=== PATIENT | female | born 1985 | race African-American/Black ===

== ENCOUNTER 2017-04-07 15:11 | Emergency (ER) | payer OTHER ==
[2017-04-07 15:27] VITALS: BMI 32.5
--- NOTE | 2017-04-07 15:27 | PDOC ---
Rapid Medical Evaluation Time Seen by Provider: 04/07/17 15:22 Medical Evaluation: Allergies Allergy/AdvReac Type Severity Reaction Status Date / Time No Known Allergies Allergy Verified 04/07/17 15:22 04/07/17 15:23 I have performed a brief in person evaluation of this patient. The patient presents with chief complaint of : vomiting since (seen at [facility] yesterday) had nausea medication. pt continues to vomit, 32 weeks , denies abd pain states she has active movement. 3 c-sections. no vaginal discharge or bleeding. MRSA skin infection 5 yrs ago. unable to keep anything down. Pertinent PE findings: non stable vitals I have ordered the following: The patient will proceed to the ER for further evaluation. 04/10/17 12:19 Discharge Disposition - Diagnosis Vomiting Qualifiers: Vomiting type: unspecified Vomiting Intractability: unspecified Nausea presence : with nausea Qualified Code(s): R11.2 - Nausea with vomiting, unspecified Qualifiers: Weeks of gestation: 32 weeks Qualified Code(s): Z3A.32 - 32 weeks gestation of - Discharge Dispostion Disposition: HOME Condition at time of disposition: Stable - Prescriptions Prescriptions: Ondansetron HCl [Zofran] 4 mg PO BID #30 tablet - Referrals Referrals: [facility] [Provider Group] - Patient Instructions Printed Discharge Instructions: DI for Hyperemesis Gravidarum Additional Instructions: please followup with your patient monitor DISCHARGE INSTRUCTIONS: FOLLOWUP WITH CLINIC REST AT HOME DIET TOLERATED INCREASE PO FLUID NO SEXUAL 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
[2017-04-07 15:52] LABS: MCH 31.2 pg (25.7-33.7); MCHC 34.7 g/dl (32.0-36.0); MEAN CELL VOLUME 89.9 fl (80-96); MEAN PLT VOLUME 7.3 fl (7.5-11.1); PLATELET COUNT 237 K/MM3 (134-434); RDW 13.2 % (11.6-15.6); WHITE BLOOD COUNT 11.3 K/mm3 (4.0-10.0)
[2017-04-07 16:15] LABS: ALBUMIN 2.8 g/dl (3.4-5.0); ALK PHOS 100 U/L (45-117); AMYLASE 63 U/L (25-115); ANION GAP 9 (8-16); BILIRUBIN,TOTAL 0.4 mg/dL (0.2-1.0); CALCIUM 9.2 mg/dL (8.5-10.1); CO2 24 mmol/L (21-32); CREATININE 0.5 mg/dL (0.55-1.02); GLUCOSE,RANDOM 73 mg/dL (74-106); SGOT/AST 15 U/L (15-37); SGPT/ALT 24 U/L (12-78); TOT PROT 6.6 g/dl (6.4-8.2)
[2017-04-07] MEDS ORDERED: SODIUM CHLORIDE 1,000 ML IV STA (17:13)
[2017-04-07] MEDS ORDERED: ONDANSETRON 4 MG/2 ML VIAL IVPUSH ONE (17:13)
[2017-04-07] MEDS ORDERED: ONDANSETRON 4 MG/2 ML VIAL ONE (17:26)
--- NOTE | 2017-04-07 17:28 | PDOC ---
History of Present Illness - General History Source: Patient Exam Limitations: No Limitations - History of Present Illness Initial Comments: 04/07/17 18:06 The patient is a 31 year old female (, 32 weeks ) with a significant past medical history of Anemia and MRSA who presents to the emergency department with vomiting for the past 4 days. Patient reports feeling ill since with headache, nasal congestion ,productive cough and vomiting. Patient reports 6 vomiting (nonbilious,nonbloody) episodes today and presents to the ED for further evaluation. Note, patient was seen at [facility] ED yesterday for the same complaints and was discharged home, Patient reports her vomiting and nausea has progressively and presents to the ED for further evaluation. Patient denies chest pain, headache or dizziness. Patient denies fever, chills, abdominal pain, diarrhea or constipation. Patient denies dysuria, frequency, urgency or hematuria. Patient denies sick contacts or recent travel. Allergies: NKA Past surgical history: C Sections Social history: Former smoker <Cici Worthington - Last Filed: 04/07/17 18:06> <Ericka Lovelace - Last Filed: 04/09/17 00:30> - General Chief Complaint: Nausea/Vomiting Stated Complaint: VOMITING (32 WKS ) Time Seen by Provider: 04/07/17 15:22 Past History <Cici Worthington - Last Filed: 04/07/17 18:06> - Suicide/Smoking/Psychosocial Hx Smoking History: Former smoker Have you smoked in the past 12 months: Yes Information on smoking cessation initiated: No <Ericka Lovelace - Last Filed: 04/09/17 00:30> - Past Medical History Allergies/Adverse Reactions: Allergies Allergy/AdvReac Type Severity Reaction Status Date / Time No Known Allergies Allergy Verified 04/07/17 22:30 Home Medications: Ambulatory Orders Ondansetron HCl [Zofran] 4 mg PO BID #30 tablet 04/07/17 Cmb#95/Iron/FA/Dha [ + Dha Combo Pack] 1 each PO DAILY Review of Systems - Review of Systems Able to Perform ROS?: Yes Comments:: 04/07/17 18:06 CONSTITUTIONAL: Absent: fever, chills, diaphoresis, generalized weakness, malaise, loss of appetite HEENT: +rhinorrhea, nasal congestion, Absent: throat pain, throat swelling, difficulty swallowing, mouth swelling, ear pain, eye pain, visual Changes CARDIOVASCULAR: Absent: chest pain, syncope, palpitations, irregular heart rate, lightheadedness , peripheral edema RESPIRATORY: Absent: cough, shortness of breath, dyspnea with exertion, orthopnea, wheezing, stridor, hemoptysis GASTROINTESTINAL: +nausea. +vomiting. Absent: abdominal pain, abdominal distension,diarrhea, constipation, melena, hematochezia GENITOURINARY: Absent: dysuria, frequency, urgency, hesitancy, hematuria, flank pain, genital pain MUSCULOSKELETAL: Absent: myalgia, arthralgia, joint swelling SKIN: Absent: rash, itching, pallor HEMATOLOGIC/IMMUNOLOGIC: Absent: easy bleeding, easy bruising, lymphadenopathy, frequent infections ENDOCRINE: Absent: unexplained weight gain, unexplained weight loss, heat intolerance, cold intolerance NEUROLOGIC: Absent: headache, focal weakness or paresthesias, dizziness, unsteady gait, seizure, mental status changes, bladder or bowel incontinence PSYCHIATRIC: Absent: anxiety, depression, suicidal or homicidal ideation, hallucinations. <Cici Worthington - Last Filed: 04/07/17 18:06> *Physical Exam - Vital Signs Last Vital Signs Temp Pulse Resp BP Pulse Ox 98.5 F 98 H 19 112/75 98 04/07/17 15:22 04/07/17 15:22 04/07/17 15:22 04/07/17 15:22 04/07/17 15:22 - Physical Exam Comments: 04/07/17 18:06 GENERAL: Well developed, well nourished. Awake and alert. No acute distress. HEENT: Normocephalic, atraumatic. PERRLA, EOMI. No conjunctival pallor. Sclera are non- icteric. Moist mucous membranes. Oropharynx is clear. NECK: Supple. Full ROM. No JVD. Carotid pulses 2+ and symmetric, without bruits. No thyromegaly. No lymphadenopathy. CARDIOVASCULAR: Regular rate and rhythm. No murmurs, rubs, or gallops. Distal pulses are 2+ and symmetric. PULMONARY: No evidence of respiratory distress. Lungs clear to auscultation bilaterally. No wheezing, rales or rhonchi. ABDOMINAL: +Gravid abdomen. Soft. Non-tender. Non-distended. No rebound or guarding. No organomegaly. Normoactive bowel sounds. MUSCULOSKELETAL Normal range of motion at all joints. No bony deformities or tenderness. No CVA tenderness. EXTREMITIES: No cyanosis. No clubbing. No edema. No calf tenderness. SKIN: Warm and dry. Normal capillary refill. No rashes. No jaundice. NEUROLOGICAL: Alert, awake, appropriate. Cranial nerves 2-12 intact. No deficits to light touch and temperature in face, upper extremities and lower extremities. No motor deficits in the in face, upper extremities and lower extremities. Normoreflexic in the upper and lower extremities. Normal speech. Toes are down-going bilaterally. Gait is normal without ataxia. PSYCHIATRIC: Cooperative. Good eye contact. Appropriate mood and affect. <Cici Worthington - Last Filed: 04/07/17 18:06> - Vital Signs Last Vital Signs Temp Pulse Resp BP Pulse Ox 98.5 F 98 H 19 112/75 98 04/07/17 15:22 04/07/17 15:22 04/07/17 15:22 04/07/17 15:22 04/07/17 15:22 <Ericka Lovelace - Last Filed: 04/09/17 00:30> ED Treatment Course - LABORATORY CBC & Chemistry Diagram: 04/07/17 14:30 04/07/17 14:30 - ADDITIONAL ORDERS Additional order review: Laboratory Results 04/07/17 14:30 Sodium 140 Potassium 4.1 Chloride 107 Carbon Dioxide 24 Anion Gap 9 BUN 6 L Creatinine 0.5 L Creat Clearance w eGFR > 60 Random Glucose 73 L Calcium 9.2 Total Bilirubin 0.4 AST 15 ALT 24 Alkaline Phosphatase 100 Total Protein 6.6 Albumin 2.8 L Total Amylase 63 Lipase 149 04/07/17 14:30 RBC 3.70 MCV 89.9 MCHC 34.7 RDW 13.2 MPV 7.3 L Neutrophils % No Result Required. Lymphocytes % No Result Required. - Medications Given in the ED: ED Medications Discontinued Medications Generic Name Dose Route Start Last Admin Trade Name Freq PRN Reason Stop Dose Admin Ondansetron HCl 4 mg 04/07/17 17:13 04/07/17 17:28 Zofran Injection IVPUSH 04/07/17 17:14 4 mg ONCE ONE Administration <Cici Worthington - Last Filed: 04/07/17 18:06> - LABORATORY CBC & Chemistry Diagram: 04/07/17 14:30 04/07/17 14:30 - ADDITIONAL ORDERS Additional order review: Laboratory Results 04/07/17 14:30 Sodium 140 Potassium 4.1 Chloride 107 Carbon Dioxide 24 Anion Gap 9 BUN 6 L Creatinine 0.5 L Creat Clearance w eGFR > 60 Random Glucose 73 L Calcium 9.2 Total Bilirubin 0.4 AST 15 ALT 24 Alkaline Phosphatase 100 Total Protein 6.6 Albumin 2.8 L Total Amylase 63 Lipase 149 04/07/17 14:30 RBC 3.70 MCV 89.9 MCHC 34.7 RDW 13.2 MPV 7.3 L Neutrophils % No Result Required. Lymphocytes % No Result Required. - Medications Given in the ED: ED Medications Discontinued Medications Generic Name Dose Route Start Last Admin Trade Name Freq PRN Reason Stop Dose Admin Ondansetron HCl 4 mg 04/07/17 17:13 04/07/17 17:28 Zofran Injection IVPUSH 04/07/17 17:14 4 mg ONCE ONE Administration <Ericka Lovelace - Last Filed: 04/09/17 00:30> Medical Decision Making - Medical Decision Making 04/09/17 00:28 pt is 31 yo female who is with vomiting -no pelvic cramping or bleeding --no abd pain pt received IVF,anti emetics and felt much better -no evidence of HELLP syndrome, liver function testes wnl <Ericka Lovelace - Last Filed: 04/09/17 00:30> *DC/Admit/Observation/Transfer - Attestations Scribe Attestion: 04/07/17 18:06 Documentation prepared by Cici Worthington, acting as medical affairs director for Ericka Lovelace MD <Cici Worthington - Last Filed: 04/07/17 18:06> <Ericka Lovelace - Last Filed: 04/09/17 00:30> Diagnosis at time of Disposition: Vomiting Qualifiers: Vomiting type: unspecified Vomiting Intractability: unspecified Nausea presence : with nausea Qualified Code(s): R11.2 - Nausea with vomiting, unspecified Qualifiers: Weeks of gestation: 32 weeks Qualified Code(s): Z3A.32 - 32 weeks gestation of - Discharge Dispostion Disposition: HOME Condition at time of disposition: Stable - Prescriptions Prescriptions: Ondansetron HCl [Zofran] 4 mg PO BID #30 tablet - Referrals Referrals: [facility] [Provider Group] - Patient Instructions Printed Discharge Instructions: DI for Hyperemesis Gravidarum Additional Instructions: please followup with your vertical punch operator DISCHARGE INSTRUCTIONS: FOLLOWUP WITH CLINIC REST AT HOME DIET TOLERATED INCREASE PO FLUID NO SEXUAL INTERCOURSE MANUAL LATHE OPERATOR PRESCRIPTION AT [facility] RETURN TO HOSPITAL IF: REGULAR CONTRACTIONS DECREASED MOVEMENT RUPTURE OF MEMBRANES VAGINAL BLEEDING
[2017-04-07 18:12] LABS: URINE APPEARANCE SLCLOUDY; URINE BILIRUBIN NEGATIVE (NEGATIVE); URINE BLOOD NEGATIVE (NEGATIVE); URINE COLOR YELLOW; URINE GLUCOSE (UA) NEGATIVE (NEGATIVE); URINE KETONE TRACE (NEGATIVE); URINE NITRITE NEGATIVE (NEGATIVE); URINE PROTEIN NEGATIVE (NEGATIVE); URINE UROBILINOGEN NEGATIVE mg/dL (0.2-1.0)
[2017-04-07] MEDS ORDERED: DEXTROSE 5%-LACTATED RINGERS 1,000 ML IV ONE (21:00)
[2017-04-07] MEDS ORDERED: TERBUTALINE SULFATE 1 MG/1 ML VIAL SQ ONE (21:05)
[2017-04-07 21:18] VITALS: BP 108/63; PULSE 88; TEMP 98
[2017-04-07 21:42] LABS: PLATELET ESTIMATE ADEQUATE
[2017-04-07 23:05] LABS: URINE LEUK ESTERASE Negative (NEGATIVE)
== END 2017-04-07 23:35 | disposition home or self-care (01) ==
LOC: JER 15:11
PROC: 3E023GC Introduction of Other Therapeutic Substance into Muscle, Percutaneous Approach (ICD-10-PCS; principal; 2017-04-07)
PROC: 3E033GC Introduction of Other Therapeutic Substance into Peripheral Vein, Percutaneous Approach (ICD-10-PCS; 2017-04-07)
PROC: 3E0337Z Introduction of Electrolytic and Water Balance Substance into Peripheral Vein, Percutaneous Approach (ICD-10-PCS; 2017-04-07)
DX: O26.893 Other specified pregnancy related conditions, third trimester (principal); Z3A.32 32 weeks gestation of pregnancy; R11.2 Nausea with vomiting, unspecified
CPT/HCPCS: 36415; 80053; 81003; 82150; 83690; 85025; 96361; 96365; 96372; 96375; 99283-25

== ENCOUNTER 2017-05-23 05:45 | Inpatient (IN) | payer OTHER ==
[~2017-05-23 05:45] MED LIST: CITRIC ACID/SODIUM CITRATE 30 ML UNIT-DOSE CUP PO ONE; ELECTROLYTE-148 SOLN 500 ML IV ONE
[2017-05-23] MEDS ORDERED: ELECTROLYTE-148 SOLN 500 ML IV ONE (06:15)
[2017-05-23 06:20] VITALS: BMI 33.9
[2017-05-23] MEDS ORDERED: OXYTOCIN 20 UNITS in 0.9% NS 20 UNIT/1,000 ML INFUS.BAG IV ONE ×3 (07:55→13:34)
[2017-05-23] MEDS ORDERED: morphine SULFATE/Preservative Free 0.5 MG/ML (1cc Syringe) ONE (07:59)
[2017-05-23] MEDS ORDERED: PHENYLEPHRINE HCL 10 MG/1 ML SINGLE DOSE VIAL ONE (07:59)
[2017-05-23] MEDS ORDERED: ELECTROLYTE-148 SOLN 1,000 ML IV SCH (08:00)
--- NOTE | 2017-05-23 08:03 | HP ---
Past Medical History - Primary Care Physician PCP:: Ariela Hernandez - Admission Chief Complaint: 31 yrs [id number] , 39.2/7 weeks IUP, previous c/sx3, reuests for Repeat c/s & voluntory sterlization History of Present Illness: PNC transfereed from [address] at 17 weeks gestation . panel : O pos, Rpr nr, Hbsag neg, Hiv neg Rubella pos, Rpr nr, Quantiferon neg, Gc/Ct neg, Gbs neg, 1 hR Gtt 98 . Growth sono done by M reviewed . 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 female. G2 2006 Ind Ab. G3 04/06/2010 40 weeks 5'9" repeat c/s DS male. G4 03/09/2011 40 weeks 5'4" repeat c/s DS female Heme/Onc: Yes: Anemia Infectious Disease: No: AIDS, HIV, MRSA, STD's Psych: Yes: Other (h/o MERSA in 2010). No: Addictions, Anxiety, Bipolar, Depression - Past Surgical History Past Surgical History: Yes: (, 04/13, 03/15) Hx Myomectomy: No Hx Transabdominal Cerclage: No Additional Surgical History: ? chest wall or breast sugery in 2010( h/o MERSA ) - Smoking History Smoking history: Never smoked Have you smoked in the past 12 months: No - Alcohol/Substance Use Hx Alcohol Use: No History of Substance Use: reports: None - Social History History of Recent Travel: No Home Medications - Allergies Allergies/Adverse Reactions: Allergies Allergy/AdvReac Type Severity Reaction Status Date / Time No Known Allergies Allergy Verified 05/20/17 11:58 - Home Medications Home Medications: Ambulatory Orders NK [No Known Home Medication] 05/06/17 Physical Exam - Maternity Vital Signs: Vital Signs Temperature 98.7 F 05/23/17 05:45 Pulse Rate 97 H 05/23/17 05:45 Respiratory Rate 20 05/23/17 05:45 Blood Pressure 120/74 05/23/17 05:45 O2 Sat by Pulse Oximetry (%) Constitutional: Yes: Well Nourished Eyes: Yes: WNL HENT: Yes: WNL, Normocephalic Neck: Yes: WNL, Supple, Trachea Midline Cardiovascular: Yes: WNL, Regular Rate and Rhythm Lungs: Clear to auscultation Breast(s): Yes: WNL. No: Mass - Abdominal Exam/OB Fundal Height: 38 Number of Fetuses: Single Presentation: Vertex Contractions: Yes Regularity: Irregular Intensity: Unaware Monitor Mode: External Heart Rate (range): 130-140 Heart Rate Location: Midline Category: I Accelerations: Uniform Decelerations: None - Vaginal Exam/OB Vaginal Bleediing: No Dilatation (cm): close Effacement (%): unefface Presentation: Vertex/Position Station: -3 - Physical Exam Musculoskeletal: Yes: WNL Extremities: Yes: WNL. No: Calf Tenderness Edema: Yes Edema: LLE: Trace, RLE: Trace Integumentary: Yes: Incision (pfannensteil scar) Deep Tendon Reflex Grade: Normal +2 ...Motor Strength: WNL Psychiatric: Yes: WNL, Alert, Oriented - Labs Lab Results: Laboratory Tests 05/20/17 05/20/17 05/20/17 08:40 08:40 08:40 WBC 11.0 H Hgb 11.2 Hct 34.5 Plt Count 270 Neutrophils % (Manual) 67.0 Lymphocytes % (Manual) 18.6 PT with INR INR PTT (Actin FS) Sodium 140 Potassium 4.0 Chloride 107 Carbon Dioxide 23 BUN 6 L Creatinine 0.6 Random Glucose 73 L Total Bilirubin 1.0 D AST 15 ALT 23 Urine Protein 1+ H Urine Glucose (UA) 1+ H Urine Nitrite Negative Ur Leukocyte Esterase 1+ H Urine WBC (Auto) 6 Urine RBC (Auto) 1 RPR Titer 05/20/17 05/20/17 10:10 10:10 WBC Hgb Hct Plt Count Neutrophils % (Manual) Lymphocytes % (Manual) PT with INR 11.10 INR 0.98 PTT (Actin FS) 23.2 L Sodium Potassium Chloride Carbon Dioxide BUN Creatinine Random Glucose Total Bilirubin AST ALT Urine Protein Urine Glucose (UA) Urine Nitrite Ur Leukocyte Esterase Urine WBC (Auto) Urine RBC (Auto) RPR Titer Nonreactive Microbiology 05/20/17 10:10 Nares - Right Nares MRSA Screen - Final NO MRSA ISOLATED 05/20/17 10:10 Nares - Left Nares MRSA Screen - Final NO MRSA ISOLATED Hemorrhage Risk Assessment - Risk Factors Medium Risk Factors: Yes: Prior , uterine surgery,or multiple laparotomies Risk Score: 1 Risk Level: Medium Risk Problem List - Problems (1) with 39 completed weeks gestation Code(s): Z3A.39 - 39 WEEKS GESTATION OF (2) Previous section Code(s): Z98.891 - HISTORY OF UTERINE SCAR FROM PREVIOUS SURGERY (3) Multiparity Code(s): Z64.1 - PROBLEMS RELATED TO MULTIPARITY Assessment/Plan 31 yrs , 39.2/7 weeks previous c/s x3 , requests for repeat c/section & BTL . gbs neg
[2017-05-23] MEDS ORDERED: OXYTOCIN 10 UNITS/ML VIAL ONE (08:32)
[2017-05-23] MEDS ORDERED: ONDANSETRON 4 MG/2 ML VIAL IVPUSH PRN (09:05)
[2017-05-23 09:10] LABS: ARTERIAL BLD GAS O2 SATURATION 13.2 % (90-98.9); ARTERIAL BLOOD GAS BASE EXCESS -3.8 meq/l (-2-2); ARTERIAL BLOOD GAS pH 7.27 (7.35-7.45)
[2017-05-23 09:14] LABS: VENOUS PC02 45.2 mmHg (38-52)
[2017-05-23 09:15] LABS: VENOUS PH 7.32 (7.32-7.42); VENOUS PO2 21.3 mmHg (28-48)
[2017-05-23] MEDS ORDERED: KETOROLAC TROMETHAMINE 30 MG/1 ML VIAL ONE (09:46)
[2017-05-23] MEDS ORDERED: IBUPROFEN 800 MG/8 ML IJ IVPB PRN (09:58)
[2017-05-23] MEDS ORDERED: METHYLERGONOVINE MALEATE 0.2 MG/1 ML AMP IM PRN (09:58)
--- NOTE | 2017-05-23 10:10 | PN ---
Delivery - Delivery Section: Repeat, Low Flap Transverse (lysis of adhesions, BTL) Type of Anesthesia: Spinal Episiotomy/Laceration: None EBL (cc): 600 (500 mlamber color bales out put ) Delivery, Single - Stages of Labor Date of Delivery: 05/23/17 Time of Delivery: 08:40 Time Placenta Delivered: 08:41 Placenta: Yes: Manual Removal, Uterine Exploration - Condition of Cost And Sales Record Supervisor/Aircraft Electrician Present: Yes Name: Geraldo Velez Gender: Male Weight: 7 lb 2 oz Position: Right, OP Total Hours ROM (Hrs/Mins): 2mins - 1 Minute Total Score: 9 5 Minutes Total Score: 9 - Tofte Feeding Plan Initial Plan: Elected not to breastfeed exclusively throughout hospitalization Remarks - Remarks Remarks: 31 yrs ,PNC at 2, [facility] , .GBS neg Indication : Previous c/s x3, 39.2/7 weeks, Multiparity requests for repeat c/ s & voluntory sterlization . During surgery intense thick adhesions encountered
--- NOTE | 2017-05-23 10:16 | OP ---
Operative Note - Note: Operative Date: 05/23/17 Pre-Operative Diagnosis: 39.2 weeks, previous c/sx3, Multiparity , voluntory sterlizatio Operation: Repeat LFTC/Section & BTL , Lysis of adhesions Findings: Ant abdominal wall adherent to uterus rectus muscle transected laterally both sides to obtain adequate exposure . 8.40 Am ,baby Boy, vx, ROP, 9/9, Wt 7'2", Left Tube , midampuulary portion ligated , cut & endosalpinx cauterized Right Tube lateral salpingectomy was done ovariy left side normal , Right ovary could not be visualised or palpated due to adhesions Dr coyne , mortgage loan underwriter present in the room Post-Operative Diagnosis: Other (abdominal uterine & omental adhesions) Surgeon: Ariela Hernandez Furnace Room Supervisor: John Rivero Anesthesiologist/HAIRSPRING II INSPECTOR: Ashley Babb Anesthesia: Spinal Specimens Removed: placenta. cord segment for blood gas. cord blood Estimated Blood Loss (mls): 600 Drains, Volume Out (mls): 500 (bales output vesta color ) Fluid Volume Replaced (mls): 2,200 (iv ancef 2 gm ivpb given )
--- NOTE | 2017-05-23 11:18 | OP ---
DATE OF OPERATION: 05/23/2017 PREOPERATIVE DIAGNOSES: At 39.2 weeks, previous section x3, multiparity, voluntary sterilization. POSTOPERATIVE DIAGNOSES: At 39.2 weeks, previous section x3, multiparity, voluntary sterilization, intense abdominal wall uterine omental adhesions. OPERATION: Repeat low transverse section, lysis of adhesions, and bilateral tubal ligation. SURGEON: Pablo Hernandez MD CANDY CUTTER HAND SURGEON: SONIDO Cotto ANESTHESIA: Spinal by Ashley Wells FINDINGS: This is a 31-year-old 5, para 3-0-1-3 at 39.2 weeks' gestation, previous section x3 not in labor and requests for voluntary sterilization and repeat section. DESCRIPTION OF PROCEDURE: The patient's abdomen was shaved. Colón catheter was placed. She was taken to the operating room table, and spinal anesthesia was given. She was placed in supine position. The abdomen was painted and draped in the usual manner. Pfannenstiel incision was made through a previous scar, the skin, subcutaneous tissue, and scar tissue. Anterior rectus sheath was incised transversely, and the bleeding points were clamped and cauterized. Rectus muscle was , and the peritoneal peritoneum could not be identified as old thick scar tissue was noted. A small window was obtained in the middle of the incision then the rectus muscle in the lower portion was , and in the upper portion the incision could not be extended so first the left side then the right side rectus muscle was transected laterally to obtain enough exposure. The scar tissue was adherent to the uterine wall in the center of the uterus, and lysis of the scar tissue was done. Once enough exposure was obtained then the bladder was high on the uterus. Large blood vessels were noted just above that. There was no definite bladder peritoneum also noted on the lowest shave point. Incision was made in the left uterine segment, and it was extended laterally, and the bladder was delivered at 8:40 a.m. from ROP position. Amniotic fluid was clear. Baby boy. Apgars were 9/9, and the weight was 7.2 ounces. Cord was clamped and cut and cord blood was collected. Social Security Specialist, Dr. Velez, was present in the operating room. A segment of cord also was sent for the cord blood gases and then placenta was removed completely with the membranes. There were adhesions of the uterus to the abdominal wall in the fundal area and laterally also. Adhesions were lysed Uterine cavity was clean. The uterine incision was closed in 2 layers with biosyn O . first layer continuous locking sutures were taken. 2 nd layer continuous vertical mattress sutures were taken ,. Because of the lysis of adhesions from the abdominal wall, there was bleeding still noticed so hemostatic sutures were required to achieve it completely, The omental adhesions were clamped, cut, and ligated. Left side adnexa was accessible. The tube was identified at the fimbrial end, and the middle portion of the tube was doubly ligated with 2-0 plain catgut, and a portion of the tube was cut and sent for pathology examination. Endosalpinx was cauterized. The left ovary was normal. Hemostasis was verified. The right side also abdominal wall was adherent to the uterus and some window was obtained. Some lysis of adhesions was done by clamped, cut, and ligatingt hem. The tube was also very adherent, and the adhesions were lysed and the tube was identified to the fimbrial end, but a medial portion of the tube could not be seen or traced to full length. , so the lateral salpingectomy was done by applying the 2 Patria clamps. A portion of the lateral tube was cut. Medial stump of the tube was ligated with 2-0 Vicryl suture. Hemostasis was verified and then again hemostasis was checked on ant uterine surface. As some oozing still noted Surgicel was placed in front of the uterus. Since we did not have a definite parietal peritoneum, wherever the peritoneum was identified it was closed together. Then the muscles, which were transected laterally were approximated with Biosyn single suture, and the lower portion of the muscle was approximated with a Biosyn single suture. Hemostasis was checked underneath the rectus sheath flap. The skin was mobilized from this scar in both upper and lower portion. Then anterior rectus sheath was closed with a Vicryl 0 suture. Subcutaneous tissue was approximated with a Vicryl 0 suture and then skin was approximated with maryellen. Abdominal l dressing was given then vaginal examination was done, and the cervix was opened. No lochia was noted. No bleeding was noted at that time from the vagina. Estimated blood loss was 600 mL, and the urine output was 500 mL intraoperatively. It was vesta color. IV Ancef 2 g prior to the incision was given. She received 2200 mL of IV fluids. PABLO KHUSHALANI, M.D. [id number] MTDD
[2017-05-23] MEDS: CEFAZOLIN 1 GM/D5W 1 GM/50 ML BAG IVPB SCH ×2 (18:26→20:03)
[2017-05-24] MEDS: CEFAZOLIN 1 GM PUSH 1 GM/10 ML DISP.SYRIN IVPUSH SCH ×2 (02:18→11:06)
[2017-05-24] MEDS: IBUPROFEN 600 MG TABLET (FP) PO PRN ×2 (05:06→16:11)
[2017-05-24] MEDS: SIMETHICONE 80 MG TAB.CHEW (FP) PO PRN ×2 (05:06→16:12)
[2017-05-24] MEDS: ACETAMINOPHEN 325 MG TABLET (FP) PO PRN ×2 (05:07→16:12)
[2017-05-24] MEDS ORDERED: oxyCODONE HCL 5 MG TABLET PO PRN ×2 (08:00)
[2017-05-24 08:15] LABS: BASO % 0.2 % (0-2.0); EOS % 0.8 % (0-4.5); HEMOGLOBIN 10.8 GM/dL (10.7-15.3); LYMPH % 11.7 % (8-40); MCH 28.7 pg (25.7-33.7); MCHC 32.5 g/dl (32.0-36.0); MEAN CELL VOLUME 88.2 fl (80-96); MONO % 8.6 % (3.8-10.2); NEUT % 78.7 % (42.8-82.8); PLATELET COUNT 256 K/MM3 (134-434); RBC 3.75 M/mm3 (3.60-5.2); WHITE BLOOD COUNT 13.6 K/mm3 (4.0-10.0)
[2017-05-24] MEDS: OXYTOCIN 20 UNITS in 0.9% NS 20 UNIT/1,000 ML INFUS.BAG IV SCH (08:26)
--- NOTE | 2017-05-24 08:34 | PN ---
Progress Note (short form) - Note Progress Note: Post op day#1.S/P C Section under spinal anesthesia with duramorph uneventful.Patient stable and has little pain for which she is on medication.No any anesthesia related problem.Patient DC from the anesthesia care.
[2017-05-24] MEDS ORDERED: BISACODYL 10 MG SUPP.RECT RC PRN (09:58)
[2017-05-24] MEDS: PRENATAL VITAMINS W/ FOLIC ACID TABLET (FP) PO SCH (10:00)
[2017-05-24] MEDS ORDERED: DIPHTH,PERTUSS(ACELL),TET 0.5 ML DISP.SYRIN IM ONE (10:00)
[2017-05-24] MEDS ORDERED: FLU VACC QS2017-18 36MOS UP/PF 60 MCG/0.5 ML SYRINGE IM ONE (10:00)
[2017-05-24] MEDS: ENOXAPARIN NA (PORCINE) 40 MG/0.4 ML DISP.SYRIN SQ SCH (10:32)
--- NOTE | 2017-05-24 12:44 | PN ---
Post Progress Note - Subjective Subjective: 31 yo Para 4 status post repeat , seen and evaluated. Doing well. Post Day: 1 Type of Delivery: Repeat C/S Vital Signs: Vital Signs Temperature 98.3 F 05/24/17 06:00 Pulse Rate 92 H 05/24/17 06:00 Respiratory Rate 18 05/24/17 06:00 Blood Pressure 116/64 05/24/17 06:00 O2 Sat by Pulse Oximetry (%) 100 05/23/17 13:45 Breast Exam: Yes: Soft Uterus: Yes: Fundus Firm Incision: Yes: Dressing dry and intact Abdomen/GI: Yes: Abdomen soft, Tolerating PO Lochia: Yes: Rubra Lochia, amount: Small Extremities: Yes: Calves non-tender Activity: Ambulating - Labs Labs: CBC WBC 13.6 K/mm3 (4.0-10.0) H 05/24/17 07:52 RBC 3.75 M/mm3 (3.60-5.2) 05/24/17 07:52 Hgb 10.8 GM/dL (10.7-15.3) 05/24/17 07:52 Hct 33.0 % (32.4-45.2) 05/24/17 07:52 MCV 88.2 fl (80-96) 05/24/17 07:52 MCH 28.7 pg (25.7-33.7) 05/24/17 07:52 MCHC 32.5 g/dl (32.0-36.0) 05/24/17 07:52 RDW 14.0 % (11.6-15.6) 05/24/17 07:52 Plt Count 256 K/MM3 (134-434) 05/24/17 07:52 MPV 7.0 fl (7.5-11.1) L 05/24/17 07:52 Neutrophils % 78.7 % (42.8-82.8) 05/24/17 07:52 Lymphocytes % 11.7 % (8-40) 05/24/17 07:52 Monocytes % 8.6 % (3.8-10.2) 05/24/17 07:52 Eosinophils % 0.8 % (0-4.5) 05/24/17 07:52 Basophils % 0.2 % (0-2.0) 05/24/17 07:52 Problem List - Problems (1) Status post repeat low transverse section Code(s): Z98.891 - HISTORY OF UTERINE SCAR FROM PREVIOUS SURGERY Assessment/Plan Status post repeat Ambulation Analgesia as needed Continue post op care
[2017-05-24] MEDS: FERROUS SO4 325 MG TABLET (FP) PO SCH (21:28)
[2017-05-24] MEDS: SENNOSIDES/DOCUSATE COMBO (SENNA PLUS) TABLET (UD) PO PRN (21:29)
[2017-05-25] MEDS: SIMETHICONE 80 MG TAB.CHEW (FP) PO PRN ×2 (00:56→19:51)
[2017-05-25] MEDS: IBUPROFEN 600 MG TABLET (FP) PO PRN ×2 (00:56→19:51)
[2017-05-25] MEDS: ACETAMINOPHEN 325 MG TABLET (FP) PO PRN ×2 (00:58→19:52)
--- NOTE | 2017-05-25 05:54 | PN ---
Post Progress Note - Subjective Subjective: 31 yo Para 4 status post repeat , seen and evaluated. Doing well, no complaints. Post Day: 2 Type of Delivery: Repeat C/S Vital Signs: Vital Signs Temperature 98 F 05/24/17 22:00 Pulse Rate 89 05/24/17 22:00 Respiratory Rate 18 05/24/17 22:00 Blood Pressure 107/66 05/24/17 22:00 O2 Sat by Pulse Oximetry (%) 100 05/23/17 13:45 Breast Exam: Yes: Soft Uterus: Yes: Fundus Firm Incision: Yes: Dressing dry and intact Abdomen/GI: Yes: Abdomen soft, Tolerating PO Lochia: Yes: Rubra Lochia, amount: Small Extremities: Yes: Calves non-tender Perineum: Yes: Intact Activity: Ambulating - Labs Labs: CBC WBC 13.6 K/mm3 (4.0-10.0) H 05/24/17 07:52 RBC 3.75 M/mm3 (3.60-5.2) 05/24/17 07:52 Hgb 10.8 GM/dL (10.7-15.3) 05/24/17 07:52 Hct 33.0 % (32.4-45.2) 05/24/17 07:52 MCV 88.2 fl (80-96) 05/24/17 07:52 MCH 28.7 pg (25.7-33.7) 05/24/17 07:52 MCHC 32.5 g/dl (32.0-36.0) 05/24/17 07:52 RDW 14.0 % (11.6-15.6) 05/24/17 07:52 Plt Count 256 K/MM3 (134-434) 05/24/17 07:52 MPV 7.0 fl (7.5-11.1) L 05/24/17 07:52 Neutrophils % 78.7 % (42.8-82.8) 05/24/17 07:52 Lymphocytes % 11.7 % (8-40) 05/24/17 07:52 Monocytes % 8.6 % (3.8-10.2) 05/24/17 07:52 Eosinophils % 0.8 % (0-4.5) 05/24/17 07:52 Basophils % 0.2 % (0-2.0) 05/24/17 07:52 Problem List - Problems (1) Status post repeat low transverse section Code(s): Z98.891 - HISTORY OF UTERINE SCAR FROM PREVIOUS SURGERY Assessment/Plan Status post repeat Ambulation Analgesia as needed Continue post op care
[2017-05-25] MEDS: ENOXAPARIN NA (PORCINE) 40 MG/0.4 ML DISP.SYRIN SQ SCH (10:11)
[2017-05-25] MEDS: FERROUS SO4 325 MG TABLET (FP) PO SCH ×2 (10:11→21:17)
[2017-05-25] MEDS: PRENATAL VITAMINS W/ FOLIC ACID TABLET (FP) PO SCH (10:23)
[2017-05-25] MEDS: SENNOSIDES/DOCUSATE COMBO (SENNA PLUS) TABLET (UD) PO PRN (19:51)
[2017-05-26 08:19] LABS: HEMATOCRIT 28.8 % (32.4-45.2); HEMOGLOBIN 9.3 GM/dL (10.7-15.3); MCH 28.5 pg (25.7-33.7); MCHC 32.3 g/dl (32.0-36.0); MEAN CELL VOLUME 88.3 fl (80-96); MEAN PLT VOLUME 7.1 fl (7.5-11.1); PLATELET COUNT 270 K/MM3 (134-434); RBC 3.26 M/mm3 (3.60-5.2)
--- NOTE | 2017-05-26 09:49 | PN ---
Post Progress Note - Subjective Subjective: Patient seen and evaluated. Doing well. She's out of bed to chair. Post Day: 3 Type of Delivery: Repeat C/S Vital Signs: Vital Signs Temperature 98.4 F 05/25/17 22:00 Pulse Rate 88 05/25/17 22:00 Respiratory Rate 18 05/25/17 22:00 Blood Pressure 108/69 05/25/17 22:00 O2 Sat by Pulse Oximetry (%) 100 05/23/17 13:45 Breast Exam: Yes: Soft Uterus: Yes: Fundus Firm Incision: Yes: [place] intact Abdomen/GI: Yes: Abdomen soft, Tolerating PO Lochia: Yes: Rubra Lochia, amount: Small Extremities: Yes: Calves non-tender Perineum: Yes: Intact Activity: Ambulating - Labs Labs: CBC WBC 11.0 K/mm3 (4.0-10.0) H 05/26/17 07:28 RBC 3.26 M/mm3 (3.60-5.2) L 05/26/17 07:28 Hgb 9.3 GM/dL (10.7-15.3) L D 05/26/17 07:28 Hct 28.8 % (32.4-45.2) L 05/26/17 07:28 MCV 88.3 fl (80-96) 05/26/17 07:28 MCH 28.5 pg (25.7-33.7) 05/26/17 07:28 MCHC 32.3 g/dl (32.0-36.0) 05/26/17 07:28 RDW 14.0 % (11.6-15.6) 05/26/17 07:28 Plt Count 270 K/MM3 (134-434) 05/26/17 07:28 MPV 7.1 fl (7.5-11.1) L 05/26/17 07:28 Neutrophils % No Result Required. 05/26/17 07:28 Lymphocytes % No Result Required. 05/26/17 07:28 Monocytes % 8.6 % (3.8-10.2) 05/24/17 07:52 Eosinophils % 0.8 % (0-4.5) 05/24/17 07:52 Basophils % 0.2 % (0-2.0) 01/20/18 07:52 Problem List - Problems (1) Status post repeat low transverse section Code(s): Z98.891 - HISTORY OF UTERINE SCAR FROM PREVIOUS SURGERY Assessment/Plan Status post repeat Ambulation Analgesia as needed Continue post op care
[2017-05-26 10:22] VITALS: BP 113/80; PULSE 80; TEMP 99.6
[2017-05-26] MEDS: ENOXAPARIN NA (PORCINE) 40 MG/0.4 ML DISP.SYRIN SQ SCH (10:45)
[2017-05-26] MEDS: OXYTOCIN 20 UNITS in 0.9% NS 20 UNIT/1,000 ML INFUS.BAG IV SCH (10:45)
[2017-05-26] MEDS: FERROUS SO4 325 MG TABLET (FP) PO SCH (10:46)
[2017-05-26] MEDS: PRENATAL VITAMINS W/ FOLIC ACID TABLET (FP) PO SCH (10:46)
--- NOTE | 2017-05-26 12:01 | DS ---
Physical Exam-MANAGEMENT ANALYST Vital Signs: Vital Signs Temperature 99.6 F 05/26/17 10:00 Pulse Rate 80 05/26/17 10:00 Respiratory Rate 18 05/26/17 10:00 Blood Pressure 113/80 05/26/17 10:00 O2 Sat by Pulse Oximetry (%) 100 05/23/17 13:45 Constitutional: Yes: Well Nourished, Pallor, Other (painscale 4/10) Eyes: Yes: WNL HENT: Yes: WNL Neck: Yes: WNL Cardiovascular: Yes: WNL Respiratory: Yes: WNL Gastrointestinal: Yes: WNL, Normal Bowel Sounds, Soft, Abdomen, Obese. No: Distention Renal/: Yes: WNL, Other (voiding without difficulty). No: CVA Tenderness - Left, CVA Tenderness - Right ....Post : Yes: Uterus firm, Uterus non-tender, Moderate lochia rubra ( perineum intact) Breast(s): Yes: WNL, Other (breast feeding) Musculoskeletal: Yes: WNL Extremities: Yes: WNL. No: Calf Tenderness Integumentary: Yes: WNL, Venous Stasis Changes Wound/Incision: Yes: Clean/Dry, Maryellen Intact Neurological: Yes: WNL, Alert, Oriented ...Motor Strength: WNL Psychiatric: Yes: WNL Labs: CBC, BMP 05/26/17 07:28 Delivery - Delivery Section: Repeat, Low Flap Transverse (lysis of adhesions, BTL) Type of Anesthesia: Spinal Episiotomy/Laceration: None EBL (cc): 600 (500 mlamber color bales out put ) Delivery, Single - Stages of Labor Date of Delivery: 05/23/17 Time of Delivery: 08:40 Time Placenta Delivered: 08:41 Placenta: Yes: Manual Removal, Uterine Exploration - Condition of Infant Mural Painter/Quantitative Strategy Analyst Present: Yes Name: Geraldo Velez Gender: Male Weight: 7 lb 2 oz Position: Right, OP Total Hours ROM (Hrs/Mins): 2mins - 1 Minute Total Score: 9 5 Minutes Total Score: 9 - Feeding Plan Initial Plan: Elected not to breastfeed exclusively throughout hospitalization Remarks - Remarks Remarks: 31 yrs ,[facility] at [facility] , .GBS neg Indication : Previous c/s x3, 39.2/7 weeks, Multiparity requests for repeat c/ s & voluntory sterlization . During surgery intense thick adhesions encountered . post op lochia noted after 10 hrs of surgery po course uneventful. anemia counselled . discharge 05/26/17 Discharge Summary Reason For Visit: ADMIT C/SECTION Current Active Problems Delivery by (planned) section occurring after 37 completed weeks of gestation but before 39 completed weeks gestation due to (spontaneous) onset of labor, with mention of complication (Acute) Multiparity (Acute) with 39 completed weeks gestation (Acute) Previous section (Acute) Status post repeat low transverse section (Acute) Condition: Stable - Instructions Diet, Activity, Other Instructions: Post Instructions DIET: Continue good diet high in protein, calcium, and iron rich foods. Drink at least eight (8) glasses of water daily in addition to other fluids. ___ Regular diet MEDICATIONS: Continue vitamins and iron as previously directed. Motrin and Tylenol may be taken for minor discomfort. ACTIVITY: Mild to moderate exercise may be started in two (2) weeks. Take frequent rest periods. Resume normal activity after six (6) week check up. WOUND CARE OF OPERATIVE SITE: Continue use of perineal bottle until vaginal discharge stops. Keep area clean. Shower daily. Keep abdominal wound dry. Report any drainage or redness to physician. Tub baths, tampons and douches are not permitted for [address] Breast feeding & or Bottle feeding BREAST CARE: (For those that are not breast feeding): If engorgement occurs: Wear tight fitting bra. Take Tylenol or Motrin for pain. Apply cold packs (ice in bags to each breast ) FAMILY PLANNING: There are many control alternatives to pursue and they should be discussed at your first office visit. You may resume sexual activity after your six (6) week check up. (Remember, breast feeding is not a contraceptive) NEXT PHYSICIAN APPOINTMENT: Be certain to call for a one (1) week appointment, unless otherwise directed. RTc 1 week for maryellen removal Call Clinic or got to Emergency Dept if you have any of the following: Heavy vaginal bleeding Painful urination Leg pain Unusual odor noted to vaginal bleeding High fever Red streaking noted on breast Referrals: Ariela Hernandez MD [Staff Physician] - Disposition: HOME
[2017-05-26 12:04] LABS: ANISOCYTOSIS 1+; MACROCYTOSIS 0; PLATELET ESTIMATE NORMAL
--- NOTE | 2017-05-28 14:54 | PATH ---
Surgical Pathology Report Patient Name: SIVA COVINGTON [facility]. Rec. 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 Specimen(s) Received A: PLACENTA B: LEFT FALLOPIAN TUBE C: RIGHT FALLOPIAN TUBE Clinical History , [id number] History of MRSA 2010, history of blood transfusion with primary due to anemia Final Diagnosis A. PLACENTA, SECTION: 546 g THIRD TRIMESTER PLACENTA WITH TRIVASCULAR UMBILICAL CORD AND UNREMARKABLE PLACENTAL MEMBRANES. B. FALLOPIAN TUBE, LEFT, PARTIAL EXCISION: FULL LUMINAL PORTION OF UNREMARKABLE FALLOPIAN TUBE. C. FALLOPIAN TUBE, RIGHT, PARTIAL EXCISION: FULL LUMINAL PORTION OF UNREMARKABLE FALLOPIAN TUBE. Electronically Signed Jes Garcia M.D. Gross Description A. The specimen is received fresh labeled placenta and is a 546 gram, 21.0 x 15.5 x 2.1 cm. placenta with attached membranes and umbilical cord. The attached membranes are flores, translucent with focal opacities and insert marginally. The umbilical cord measures 23 cm. in length and averages 1.2 cm. in diameter. The cord inserts eccentrically, 6 cm. to the nearest margin. No true knots or strictures are identified. Cut surface of the umbilical cord reveals 3 vessels. The surface is brown-blue with minimal fibrin deposition and appropriate caliber vessels. The maternal surface is red-brown with focal defects. Sectioning reveals red-brown, spongy parenchyma. No lesions are identified. Automatic Splicing Machine Operator sections are submitted in three cassettes as follows: 1- membrane rolls and umbilical cord; 2-3- full thickness sections of placenta. B. Received in formalin labeled "portion of left fallopian tube," is a 2 cm in length portion of fallopian tube. No fimbria are present. The outer surface is flores-celaya and smooth. Sectioning reveals an unremarkable lumen. Automatic Splicing Machine Operator sections are submitted in one cassette. C. Received in formalin labeled "portion of right fallopian tube," is a 2.5 cm in length fimbriated portion of fallopian tube. The outer surface is flores brown and smooth. Sectioning reveals an unremarkable lumen. Automatic Splicing Machine Operator sections are submitted in 2 cassettes as follows: 1-fimbria; 2-cross sections of fallopian tube. 05/27/2017 [facility]05/27/2017
== END 2017-05-26 13:40 | disposition home or self-care (01) | DRG 540 ==
LOC: JLDR 05:45 → J3W 14:00
PROVIDERS: ADMIT Obstetrics & Gynecology; ATTEND Obstetrics & Gynecology
PROC: 10D00Z1 Extraction of Products of Conception, Low, Open Approach (ICD-10-PCS; principal; 2017-05-23)
PROC: 0UB70ZZ Excision of Bilateral Fallopian Tubes, Open Approach (ICD-10-PCS; 2017-05-23)
DX: O34.211 Maternal care for low transverse scar from previous cesarean delivery (principal); N85.8 Other specified noninflammatory disorders of uterus; Z3A.39 39 weeks gestation of pregnancy; Z37.0 Single live birth; Z30.2 Encounter for sterilization
CPT/HCPCS: 36415; 36600; 82803; 85025; 90686; 90715